=== PATIENT | male | born 1980 | race Caucasian/White ===

== ENCOUNTER 2017-02-03 18:03 | Emergency (ER) | payer BC ==
[~2017-02-03] VITALS: Ht 165.1 cm; Wt 95.3 kg
[2017-02-03] MEDS ORDERED: HYDROmorphone 2 MG/ML VIAL IV ONE (18:45)
[2017-02-03] MEDS ORDERED: ONDANSETRON PF 4 MG/2 ML VIAL. IV ONE (18:45)
[2017-02-03] MEDS ORDERED: IV NORMAL SALINE 1000ML BAG 1,000 ML IV ONE (18:45)
--- NOTE | 2017-02-03 18:48 | PHYS DOC ---
Past Medical History Past Medical History: No Pertinent History Past Surgical History: No Surgical History Alcohol Use: None Drug Use: None Adult General Chief Complaint Chief Complaint: ABDOMINAL PAIN HPI HPI Patient is a 36 year old male who presents with since last night onset moderate right sided abdominal pain more lower right quadrant; no flank pain some vomiting at clear but denies nausea and diarrhea. No dysuria or frequency hematuria or flank pain. No prior surgeries my: denies taking any medications or having any other illnesses. Review of Systems Review of Systems Constitutional: Denies fever or chills [] Eyes: Denies change in visual acuity, redness, or eye pain [] HENT: Denies nasal congestion or sore throat [] Respiratory: Denies cough or shortness of breath [] Cardiovascular: No additional information not addressed in HPI [] GI: Denies abdominal pain, nausea, vomiting, bloody stools or diarrhea [] : Denies dysuria or hematuria [] Musculoskeletal: Denies back pain or joint pain [] Integument: Denies rash or skin lesions [] Neurologic: Denies headache, focal weakness or sensory changes [] Endocrine: Denies polyuria or polydipsia [] Current Medications Current Medications Current Medications Medications (Trade) Dose Ordered Sig/Zulma Start Time Stop Time Status Last Admin Dose Admin Hydromorphone HCl (Dilaudid) 0.5 mg 1X ONCE 02/03/17 18:45 02/03/17 18:59 DC 02/03/17 19:05 0.5 MG Ondansetron HCl (Zofran) 4 mg 1X ONCE 02/03/17 18:45 02/03/17 18:59 DC 02/03/17 19:05 4 MG Sodium Chloride 1,000 ml @ 1,000 mls/hr 1X ONCE 02/03/17 18:45 02/03/17 19:44 DC 02/03/17 19:05 1,000 MLS/HR Allergies Allergies Allergies Coded Allergies Type Severity Reaction Last Updated Verified No Known Drug Allergies 02/03/17 No Physical Exam Physical Exam Constitutional: Well developed, well nourished, no acute distress, non-toxic appearance. [] HENT: Normocephalic, atraumatic, bilateral external ears normal, oropharynx moist, no oral exudates, nose normal. [] Eyes: PERRLA, EOMI, conjunctiva normal, no discharge. [] Neck: Normal range of motion, no tenderness, supple, no stridor. [] Cardiovascular:Heart rate regular rhythm, no murmur [] Lungs & Thorax: Bilateral breath sounds clear to auscultation [] Abdomen: Bowel sounds normal, soft, mild to moderate tenderness in the right side of the abdomen that seems deep-seated and is questionably right lower quadrant; denies any right upper quadrant tenderness to palpation; no CVA tenderness., no masses, no pulsatile masses. [] Skin: Warm, dry, no erythema, no rash. [] Back: No tenderness, no CVA tenderness. [] Extremities: No tenderness, no cyanosis, no clubbing, ROM intact, no edema. [] Neurologic: Alert and oriented X 3, normal motor function, normal sensory function, no focal deficits noted. [] Psychologic: Affect normal, judgement normal, mood normal. [] Current Patient Data Vital Signs Vital Signs Date Time Temp Pulse Resp B/P (MAP) Pulse Ox O2 Delivery O2 Flow Rate FiO2 02/03/17 20:07 53 18 122/68 (86) 98 Room Air 02/03/17 18:32 98.5 98.5 Lab Values Laboratory Tests Test 02/03/17 19:00 02/03/17 19:13 02/03/17 19:35 White Blood Count 12.3 x10^3/uL (4.0-11.0) H Red Blood Count 4.93 x10^6/uL (4.30-5.70) Hemoglobin 14.3 g/dL (13.0-17.5) Hematocrit 42.6 % (39.0-53.0) Mean Corpuscular Volume 86 fL (79-100) Mean Corpuscular Hemoglobin 29 pg (25-35) Mean Corpuscular Hemoglobin Concent 34 g/dL (31-37) Red Cell Distribution Width 13.6 % (11.5-14.5) Platelet Count 211 x10^3/uL (140-400) Neutrophils (%) (Auto) 89 % (31-73) H Lymphocytes (%) (Auto) 6 % (24-48) L Monocytes (%) (Auto) 5 % (0-9) Eosinophils (%) (Auto) 0 % (0-3) Basophils (%) (Auto) 0 % (0-3) Neutrophils # (Auto) 10.9 x10^3uL (1.8-7.7) H Lymphocytes # (Auto) 0.7 x10^3/uL (1.0-4.8) L Monocytes # (Auto) 0.6 x10^3/uL (0.0-1.1) Eosinophils # (Auto) 0.0 x10^3/uL (0.0-0.7) Basophils # (Auto) 0.0 x10^3/uL (0.0-0.2) Segmented Neutrophils % 90 % (35-66) H Lymphocytes % 8 % (24-48) L Monocytes % 2 % (0-10) Platelet Estimate Adequate (ADEQUATE) Sodium Level 140 mmol/L (136-145) Potassium Level 4.0 mmol/L (3.5-5.1) Chloride Level 103 mmol/L (98-107) Carbon Dioxide Level 27 mmol/L (21-32) Anion Gap 10 (6-14) 17 mmol/L (6-14) H Blood Urea Nitrogen 22 mg/dL (8-26) Creatinine 1.5 mg/dL (0.7-1.3) H Estimated GFR (Cockcroft-Gault) 53.0 BUN/Creatinine Ratio 15 (6-20) Glucose Level 162 mg/dL (70-99) H 160 mg/dL (70-99) H Calcium Level 8.8 mg/dL (8.5-10.1) Total Bilirubin 0.6 mg/dL (0.2-1.0) Aspartate Amino Transferase (AST) 23 U/L (15-37) Alanine Aminotransferase (ALT) 61 U/L (16-63) Alkaline Phosphatase 104 U/L (46-116) Total Protein 7.6 g/dL (6.4-8.2) Albumin 4.0 g/dL (3.4-5.0) Albumin/Globulin Ratio 1.1 (1.0-1.7) Lipase 131 U/L (73-393) POC Hemoglobin 14.6 g/dL (14-18) POC Hematocrit 43 % (37-52) POC Sodium 140 mmol/L (135-145) POC Potassium 4.0 mmol/L (3.5-5.0) POC Chloride 103 mmol/L (98-110) POC Total CO2 25 mmol/L (23-32) POC Blood Urea Nitrogen 22 mg/dL (8-26) POC Creatinine 1.5 mg/dL (0.5-1.4) H POC Ionized Calcium (Mona) 1.13 mmol/L (1.13-1.32) Urine Collection Type Unknown Urine Color Yellow Urine Clarity Clear Urine pH 5.5 Urine Specific [place] >=1.030 Urine Protein Negative mg/dL (NEG-TRACE) Urine Glucose (UA) Negative mg/dL (NEG) Urine Ketones (Stick) Negative mg/dL (NEG) Urine Blood Large (NEG) Urine Nitrite Negative (NEG) Urine Bilirubin Negative (NEG) Urine Urobilinogen Dipstick 0.2 mg/dL (0.2 mg/dL) Urine Leukocyte Esterase Negative (NEG) Urine RBC 20-40 /HPF (0-2) Urine WBC Occ /HPF (0-4) Urine Squamous Epithelial Cells Few /LPF Urine Bacteria 0 /HPF (0-FEW) Urine Mucus Marked /LPF Laboratory Tests 02/03/17 19:00 Laboratory Tests 02/03/17 19:00 02/03/17 19:13 EKG EKG [] Radiology/Procedures Radiology/Procedures CT abdomen and pelvis[ 4 mm stone right ureter midureter with some Haiku per radiology report] Course & Med Decision Making Course & Med Decision Making Pertinent Labs and Imaging studies reviewed. (See chart for details) Urinalysis showed hematuria CT scan confirmed kidney stone no appendicitis pain was improved any stable for dismissal we will refer him to urology outpatient follow-up. The patient and mother are comfortable with the outpatient management plan and I have given return precautions.[] Dragon Disclaimer Dragon Disclaimer This electronic medical record was generated, in whole or in part, using a voice recognition dictation system. Departure Departure Impression: Primary Impression: Right ureteral stone Disposition: HOME, SELF-CARE Condition: IMPROVED Patient Instructions: Kidney Stones, [id number] Additional Instructions: please attempt to follow-up with [facility] their phone number is [phone]; address as [address] [place] [address], [address], [place] [address] Scripts Tamsulosin Hcl (FLOMAX) 0.4 Mg Cap.er.24h 1 CAP PO DAILY for kidney stone for 7 Days, #7 CAP 11 Refills take one daily and discontinue when your kidney stone passes Prov: APOLINAR RESENDIZ MD 02/03/17 Ondansetron (ZOFRAN ODT) 4 Mg Tab.rapdis 4 MG PO BID Y for NAUSEA/VOMITING for 4 Days, #8 TAB Prov: APOLINAR RESENDIZ MD 02/03/17 Oxycodone/Apap 5-325 (PERCOCET 5-325 MG TABLET) 1 Each Tablet 1 TAB PO PRN Q6HRS Y for PAIN, #20 TAB 0 Refills Prov: APOLINAR RESENDIZ MD 02/03/17 APOLINAR RESENDIZ MD Feb 03, 2017 18:48
[2017-02-03 19:14] LABS: BASO % 0 % (0-3); EOS % 0 % (0-3); HEMATOCRIT 42.6 % (39.0-53.0); HEMOGLOBIN 14.3 g/dL (13.0-17.5); LYMPH # 0.7 x10^3/uL (1.0-4.8); LYMPH % 6 % (24-48); MEAN CORPUSCULAR HEMOGLOBIN 29 pg (25-35); MEAN CORPUSCULAR HGB CONC 34 g/dL (31-37); MEAN CORPUSCULAR VOLUME 86 fL (79-100); MONO % 5 % (0-9); NEUT % 89 % (31-73); PLATELET COUNT 211 x10^3/uL (140-400); RED BLOOD COUNT 4.93 x10^6/uL (4.30-5.70); RED CELL DISTRIBUTION WIDTH 13.6 % (11.5-14.5); WHITE BLOOD COUNT 12.3 x10^3/uL (4.0-11.0)
[2017-02-03 19:25] LABS: CALCIUM 8.8 mg/dL (8.5-10.1); CREATININE 1.5 mg/dL (0.7-1.3)
[2017-02-03 19:32] LABS: ALBUMIN/GLOBULIN RATIO 1.1 (1.0-1.7); TOTAL BILIRUBIN 0.6 mg/dL (0.2-1.0); TOTAL PROTEIN 7.6 g/dL (6.4-8.2)
--- NOTE | 2017-02-03 19:47 | RAD ---
CT ABDOMEN PELVIS WO CONTRAST dated 02/03/2017 7:21 PM Indication:moderate RLQ pain today, non contrast per ordering doctor due to elevated creatinine, no priors Comparison: No comparison is available. Technique: No oral or IV contrast was given. One or more of the following individualized dose reduction techniques were utilized for this examination: 1. Automated exposure control 2. Adjustment of the mA and/or kV according to patient size 3. Use of iterative reconstruction technique Findings: There is a 4 mm calculus in the mid right ureter at the L3-4 level. This is causing very mild right hydronephrosis. The unopacified kidneys are otherwise unremarkable. The non-opacified liver, spleen, pancreas and adrenal glands are normal. Unopacified bowel loops are normal. The appendix is unremarkable. There is prostate calcification, the prostate is not enlarged. No free fluid is seen. IMPRESSION: 4 mm right ureteral calculus causing minimal obstruction. Electronically signed by: Nivia Almodovar MD (02/03/2017 7:44 PM) [facility]
[2017-02-03 19:54] LABS: BILIRUBIN,URINE NEGATIVE (NEG); GLUCOSE,URINE NEGATIVE (NEG); NITRITE,URINE NEGATIVE (NEG); PH,URINE 5.5; PROTEIN,URINE NEGATIVE (NEG-TRACE); UROBILINOGEN,URINE 0.2 mg/dL (0.2 mg/dL)
[2017-02-03 20:01] LABS: BACTERIA,URINE 0 /HPF (0-FEW); RBC,URINE 20-40 /HPF (0-2); SQUAMOUS EPITHELIAL CELL,UR FEW /LPF; WBC,URINE OCC /HPF (0-4)
[2017-02-03 20:07] VITALS: BP 122/68
[2017-02-03 20:11] LABS: PLT ESTIMATE ADEQUATE (ADEQUATE)
[2017-02-03] MEDS ORDERED: TAMS0.4C97 PO (20:11)
[2017-02-03] MEDS ORDERED: ONDA4TAB10 PO (20:11)
[2017-02-03] MEDS ORDERED: OXYC-323 PO (20:11)
== END 2017-02-03 20:20 | disposition home or self-care (01) ==
LOC: ER 18:03
DX: N20.1 Calculus of ureter (principal)
CPT/HCPCS: 36415; 74176; 80047; 80053; 81001; 83690; 85007; 85025; 96361; 96374; 96375; 99285; J1170; J2405; J7030